=== PATIENT | female | born 1960 | race Caucasian/White ===

== ENCOUNTER 2024-01-01 11:26 | Emergency (ER) | payer BC ==
[2024-01-01] MEDS ORDERED: Ketorolac Tromethamine 15 MG/ML VIAL IM ONE (13:40)
[2024-01-01] MEDS ORDERED: NAPROSYN500 MG PO (13:41)
== END 2024-01-01 14:00 | disposition home or self-care (01) ==
LOC: ED 11:26
DX: M25.522 Pain in left elbow (principal)